=== PATIENT | female | born 1940 | race Caucasian/White ===

== ENCOUNTER 2016-08-20 11:46 | Emergency (ER) | payer MEDICARE, OTHER ==
--- NOTE | 2016-08-20 12:34 | EDM.PDOC ---
ED HPI GENERAL MEDICAL PROBLEM - General Chief Complaint: General Stated Complaint: LEFT ARM AND LEG EDEMA/NAUSEA Time Seen by Provider: 08/20/16 12:21 Source of Information: Reports: Patient, RN Notes Reviewed History Limitations: Reports: No Limitations - History of Present Illness INITIAL COMMENTS - FREE TEXT/NARRATIVE: 76-year-old female presents emergency department day complaint of shortness of breath and weak gain, she is postop day 3 from open reduction internal fixation of the left humerus she states she's really noticed the weight gain over the last 24 hour. Also had some shortness of breath and chest pain earlier today but that now has resolved while she's rested. Denies any fevers does complain of edema in the surgical arm Left Arm Pain Score (Numeric/FACES): 8 - Related Data Allergies Allergy/AdvReac Type Severity Reaction Status Date / Time No Known Allergies Allergy Verified 08/20/16 12:07 Home Meds: Home Meds Aspirin [Adult Low Dose Aspirin EC] 81 mg PO DAILY 08/02/13 [History] Hydrochlorothiazide/Valsartan [Diovan HCTZ 80-12.5 MG] 1 tab PO DAILY 08/02/13 [ History] Insulin Glarg,Human.Rec.Analog [Lantus] 60 unit .XX BEDTIME 08/02/13 [History] Multivitamin [Multi-Vitamin Daily] 1 each PO DAILY 08/02/13 [History] metFORMIN [Glucophage] 1,000 mg PO BIDM 08/02/13 [History] Acetaminophen/HYDROcodone [[place] 325-5 MG] 1 tab PO Q4H PRN 08/20/16 [History] Ascorbic Acid [Isi-C] 2 tab PO DAILY 08/20/16 [History] Insulin Aspart [NovoLOG] 1 unit SUBCUT ASDIRECTED 08/20/16 [History] Isosorbide Mononitrate [Imdur] 1 tab PO DAILY 08/20/16 [History] Magnesium Oxide [Magnesium] 1 tab PO BID 08/20/16 [History] atorvaSTATin Calcium [Atorvastatin Calcium] 10 mg PO DAILY 08/20/16 [History] Past Medical History Cardiovascular History: Reports: Cardiomyopathy, High Cholesterol, Hypertension Endocrine/Metabolic History: Reports: Diabetes, Type II Social & Family History - Tobacco Use Smoking Status *Q: Never Smoker Second Hand Smoke Exposure: No - Alcohol Use Days Per Week of Alcohol Use: 0 - Recreational Drug Use Recreational Drug Use: No ED ROS GENERAL - Review of Systems Review Of Systems: See Below Constitutional: Denies: Fever, Chills HEENT: Reports: No Symptoms, Vision Change Cardiovascular: Reports: Chest Pain, Dyspnea on Exertion, Edema GI/Abdominal: Reports: No Symptoms : Reports: No Symptoms Musculoskeletal: Reports: Shoulder Pain Skin: Reports: No Symptoms Neurological: Reports: No Symptoms ED EXAM, GENERAL - Physical Exam Exam: See Below Free Text/Narrative:: General: Female, not in any distress, alert and oriented x3 HEENT: head is atraumatic normocephalic, eyes pupils equal round reactive to light, sclera clear no conjunctivitis appreciated. Ears tympanic membranes clear and ruggiero landmarks and light reflex are present bilaterally canals are clear. Nose no septal deviation, nares are clear, no blood present. Mouth mucosa is moist and pink no erythema or exudate noted in soft palate, tongue is midline uvula is midline, dentition is intact. Neck: Supple no thyromegaly no tracheal deviation. Nodes: Cervical nodes subclavicular nodes nontender no palpable lymphadenopathy noted. Lungs: clear to auscultation bilaterally with symmetrical respirations, no adventitious noise appreciated. CV: Regular rate and rhythm S1 and S2 appreciated no murmurs rubs or gallops noted. Abdomen: Soft, nontender, no palpable masses or organomegaly appreciated, no distention no guarding bowel sounds are present, . Neuro: Cranial nerves II through XII grossly intact Skin: Warm and dry, intact Extremities: +1 pitting edema bilaterally she does have marked edema appreciated on the distal aspect of the left upper extremity generalized tenderness to mild manipulation of the left shoulder not unexpected postoperatively Course - Vital Signs Last Recorded V/S: Last Vital Signs Temp 98.4 F 08/20/16 12:06 Pulse 84 08/20/16 12:06 Resp 16 08/20/16 12:06 BP 144/73 H 08/20/16 12:06 Pulse Ox 94 L 08/20/16 12:06 - Orders/Labs/Meds Orders: Active Orders 24 hr Category Date Time Status Cardiac Monitoring [RC] .As Directed Care 08/20/16 12:29 Active EKG Documentation Completion [RC] ASDIRECTED Care 08/20/16 12:30 Active EKG 12 Lead [EK] Stat Ther 08/20/16 12:30 Ordered Labs: Laboratory Tests 08/20/16 08/20/16 Range/Units 12:40 12:40 WBC 8.3 (4.5-11.0) K/uL RBC 3.36 (3.30-5.50) M/uL Hgb 9.1 L (12.0-15.0) g/dL Hct 29.3 L (36.0-48.0) % MCV 87 (80-98) fL MCH 27 (27-31) pg MCHC 31 L (32-36) % Plt Count 232 (150-400) K/uL Neut % (Auto) 61 (36-66) % Lymph % (Auto) 27 (24-44) % [place] % (Auto) 8 H (2-6) % Eos % (Auto) 3 (2-4) % Baso % (Auto) 0 (0-1) % Sodium 136 L (140-148) mmol/L Potassium 4.1 (3.6-5.2) mmol/L Chloride 99 L (100-108) mmol/L Carbon Dioxide 33 H (21-32) mmol/L Anion Gap 8.1 (5.0-14.0) mmol/L BUN 17 (7-18) mg/dL Creatinine 1.0 (0.6-1.0) mg/dL Est Cr Clr Drug Dosing 48.00 mL/min Estimated GFR (MDRD) 54 L (>60) Glucose 108 H (74-106) mg/dL Calcium 8.8 (8.5-10.1) mg/dL Total Bilirubin 0.6 (0.2-1.0) mg/dL AST 47 H (15-37) U/L ALT 31 (12-78) U/L Alkaline Phosphatase 60 (46-116) U/L CK-MB (CK-2) 2.3 (0-3.6) mg/mL Troponin I < 0.017 (0.000-0.056) ng/mL [id number]-[id number] Pept 415 H (5-125) pg/mL Total Protein 6.4 (6.4-8.2) g/dL Albumin 2.9 L (3.4-5.0) g/dL Globulin 3.5 (2.3-3.5) g/dL Albumin/Globulin Ratio 0.8 L (1.2-2.2) Departure - Departure Time of Disposition: 14:05 Disposition: Home, Self-Care 01 Condition: Good Clinical Impression: Dyspnea Qualifiers: Dyspnea type: dyspnea on exertion Qualified Code(s): R06.09 - Other forms of dyspnea - Discharge Information Forms: ED Department Discharge Additional Instructions: Please take the Bumex 1 mg once a day and tell your weight returns to your baseline, keep your follow-up appointment with surgery - My Orders Last 24 Hours: My Active Orders 08/20/16 12:29 Cardiac Monitoring [RC] .As Directed 08/20/16 12:30 EKG Documentation Completion [RC] ASDIRECTED EKG 12 Lead [EK] Stat - Assessment/Plan Last 24 Hours: My Active Orders 08/20/16 12:29 Cardiac Monitoring [RC] .As Directed 08/20/16 12:30 EKG Documentation Completion [RC] ASDIRECTED EKG 12 Lead [EK] Stat Plan: Assessment Acuity = acute Site and laterality = fluid overload complicated in the patient with recent post operative surgery 3 days prior known history of cardiomyopathy Etiology = probable secondary to fluid overload during surgical intervention Manifestations = [dyspnea on exertion Location of injury = Home Lab values = hemoglobin low 9.1 consistent normochromic anemia sodium low at 136 consistent hyponatremia BNP mildly elevated at 415 consistent with fluid overload type pattern albumin low at 2.9 consistent hypoalbuminemia EKG demonstrates a left bundle branch block similar to prior EKGs and chest x-ray shows no acute process official read radiology pending Plan I did review lab work EKG and chest x-ray results with her she has been asymptomatic in the ED plan is to try Bumex 1 mg once a day she is going to do daily weights she gets back to her baseline of 193 keep postsurgical follow-up appointment Patient was in agreement with the plan all questions were answered, they were instructed to return to the emergency department or call for worsening symptoms. This note was dictated using [employer] voice recognition software please call with any questions.
--- NOTE | 2016-08-20 13:57 | CR ---
Chest 1V Frontal HISTORY: Shortness of breath. FINDINGS: Cardiac size and pulmonary vessels are normal. The lungs are clear. IMPRESSION: Negative AP chest.
[2016-08-20] MEDS ORDERED: Acetaminophen/HYDROcodone 325-5 MG Tab PO ONE (14:03)
[2016-08-20 14:19] VITALS: BP 150/66
== END 2016-08-20 14:29 | disposition home or self-care (01) ==
LOC: JP.ED 11:46
DX: R06.09 Other forms of dyspnea (principal); E78.00 Pure hypercholesterolemia, unspecified; I10 Essential (primary) hypertension; E11.9 Type 2 diabetes mellitus without complications; Z79.4 Long term (current) use of insulin; Z79.899 Other long term (current) drug therapy; Z79.82 Long term (current) use of aspirin
CPT/HCPCS: 36415; 71010; 71010-26; 80053; 82553; 83880; 84484; 85025; 93005; 93010; 99283; 99284-25

== ENCOUNTER 2016-11-07 01:14 | Emergency (ER) | payer MEDICARE, OTHER ==
[2016-11-07] MEDS ORDERED: Ondansetron 4 MG/2 ML SDV IVPUSH ONE (01:38)
[2016-11-07] MEDS: Nitroglycerin 0.4 MG Tab.SL SL PRN ×2 (01:44→02:01)
[2016-11-07] MEDS ORDERED: Furosemide 40 MG/4 ML VIAL IVPUSH ONE (01:50)
--- NOTE | 2016-11-07 02:04 | EDM.PDOC ---
ED HPI GENERAL MEDICAL PROBLEM - General Chief Complaint: Chest Pain Stated Complaint: MEDICAL VIA TRI Time Seen by Provider: 11/07/16 02:00 Source of Information: Reports: Patient, Family History Limitations: Reports: No Limitations - History of Present Illness INITIAL COMMENTS - FREE TEXT/NARRATIVE: pt arrived with tightness in her chest. She feels like someone is sitting on the chest. Onset: Today Duration: Hour(s):, Getting Worse Location: Reports: Chest Associated Symptoms: Reports: Chest Pain, Shortness of Breath, Other (pressure in the chest. ) Treatments PATTERN MARKER: Reports: Aspirin, Other Medication(s) Other Treatments PATTERN MARKER: ZOFRAN WITH RELIEF PER EMS Middle Chest Pain Score (Numeric/FACES): 4 - Related Data Allergies Allergy/AdvReac Type Severity Reaction Status Date / Time No Known Allergies Allergy Verified 08/20/16 12:07 Home Meds: Home Meds Aspirin [Adult Low Dose Aspirin EC] 81 mg PO DAILY 08/02/13 [History] Hydrochlorothiazide/Valsartan [Diovan HCTZ 80-12.5 MG] 1 tab PO DAILY 08/02/13 [ History] Insulin Glarg,Human.Rec.Analog [Lantus] 60 unit .XX BEDTIME 08/02/13 [History] Multivitamin [Multi-Vitamin Daily] 1 each PO DAILY 08/02/13 [History] metFORMIN [Glucophage] 1,000 mg PO BIDM 08/02/13 [History] Acetaminophen/HYDROcodone [[place] 325-5 MG] 1 tab PO Q4H PRN 08/20/16 [History] Ascorbic Acid [Isi-C] 2 tab PO DAILY 08/20/16 [History] Insulin Aspart [NovoLOG] 1 unit SUBCUT ASDIRECTED 08/20/16 [History] Isosorbide Mononitrate [Imdur] 1 tab PO DAILY 08/20/16 [History] Magnesium Oxide [Magnesium] 1 tab PO BID 08/20/16 [History] atorvaSTATin Calcium [Atorvastatin Calcium] 10 mg PO DAILY 08/20/16 [History] Past Medical History HEENT History: Reports: Impaired Vision Cardiovascular History: Reports: Cardiomyopathy, High Cholesterol, Hypertension Other Cardiovascular History: CHF Gastrointestinal History: Reports: Cholelithiasis, Hemorrhoids, Other (See Below ) Other Gastrointestinal History: inflammatory colon polyps REVERSE ENGINEER History: Reports: Polycystic Ovaries, , Spontaneous Musculoskeletal History: Reports: Fracture Endocrine/Metabolic History: Reports: Diabetes, Type II Hematologic History: Reports: Blood Transfusion(s), Iron Deficiency, Transfusion Reaction Oncologic (Cancer) History: Reports: Breast - Past Surgical History HEENT Surgical History: Reports: Oral Surgery GI Surgical History: Reports: Cholecystectomy, Colonoscopy, Other (See Below) Other GI Surgeries/Procedures: hemorrhoidectomy Female Surgical History: Reports: Section, Tubal Ligation Musculoskeletal Surgical History: Reports: Other (See Below) Other Musculoskeletal Surgeries/Procedures:: surgical repair of humerous Oncologic Surgical History: Reports: Biopsy of Breast, Mastectomy Social & Family History - Tobacco Use Smoking Status *Q: Unknown Ever Smoked Second Hand Smoke Exposure: No - Alcohol Use Days Per Week of Alcohol Use: 0 - Recreational Drug Use Recreational Drug Use: No ED ROS GENERAL - Review of Systems Review Of Systems: See Below Constitutional: Reports: No Symptoms HEENT: Reports: No Symptoms Respiratory: Reports: Shortness of Breath Cardiovascular: Reports: Chest Pain, Dyspnea on Exertion, Other (pressure in the chest) Endocrine: Reports: No Symptoms GI/Abdominal: Reports: Nausea, Vomiting : Reports: No Symptoms Musculoskeletal: Reports: No Symptoms Skin: Reports: No Symptoms ED EXAM, GENERAL - Physical Exam Exam: See Below Free Text/Narrative:: pt arrived with acute pressure in the chest. She has felt sob and she has low o2 sats. She has diabetes and is on Insulin therapy. Exam Limited By: No Limitations General Appearance: Alert, Anxious, Moderate Distress Ears: Normal TMs Throat/Mouth: Normal Inspection Head: Atraumatic Neck: Normal Inspection Respiratory/Chest: Decreased Breath Sounds, Other (o2 sats in the 90s. ) Cardiovascular: Regular Rate, Rhythm GI/Abdominal: Soft, Non-Tender, Other (pt is vomiting bile like material. ) (Female) Exam: Deferred Rectal (Female) Exam: Deferred Back Exam: Normal Inspection Extremities: Leg Pain, Other (pt has plus 2 edema. ) Neurological: Alert, Oriented, Normal Cognition Course - Vital Signs Last Recorded V/S: Last Vital Signs Temp 35.7 C 11/07/16 01:31 Pulse 93 11/07/16 02:30 Resp 14 11/07/16 02:30 BP 156/89 H 11/07/16 02:30 Pulse Ox 93 L 11/07/16 02:30 - Orders/Labs/Meds Orders: Active Orders 24 hr Category Date Time Status EKG Documentation Completion [RC] ASDIRECTED Care 11/07/16 01:22 Active Urinary Catheter Assessment [RC] ASDIRECTED Care 11/07/16 03:03 Active Chest 1V Frontal [CR] Stat Exams 11/07/16 01:22 Taken EKG 12 Lead [EK] Routine Ther 11/07/16 01:22 Ordered Labs: Laboratory Tests 11/07/16 11/07/16 11/07/16 Range/Units 01:34 01:34 01:34 WBC 8.8 (4.5-11.0) K/uL RBC 4.65 (3.30-5.50) M/uL Hgb 11.7 L D (12.0-15.0) g/dL Hct 37.5 (36.0-48.0) % MCV 81 (80-98) fL MCH 25 L (27-31) pg MCHC 31 L (32-36) % Plt Count 274 (150-400) K/uL Neut % (Auto) 74 H (36-66) % Lymph % (Auto) 18 L (24-44) % [place] % (Auto) 5 (2-6) % Eos % (Auto) 2 (2-4) % Baso % (Auto) 1 (0-1) % APTT (27.0-36.0) sec Sodium 136 L (140-148) mmol/L Potassium 3.9 (3.6-5.2) mmol/L Chloride 101 (100-108) mmol/L Carbon Dioxide 27 (21-32) mmol/L Anion Gap 11.9 (5.0-14.0) mmol/L BUN 16 (7-18) mg/dL Creatinine 1.0 (0.6-1.0) mg/dL Est Cr Clr Drug Dosing 48.00 mL/min Estimated GFR (MDRD) 54 L (>60) Glucose 257 H (74-106) mg/dL Calcium 8.6 (8.5-10.1) mg/dL Magnesium (1.8-2.4) mg/dL Total Bilirubin 0.3 (0.2-1.0) mg/dL AST 20 (15-37) U/L ALT 23 (12-78) U/L Alkaline Phosphatase 76 (46-116) U/L Creatine Kinase 128 (26-192) U/L Troponin I 0.192 H* (0.000-0.056) ng/mL NT-Pro-B Natriuret Pep (5-125) pg/mL Total Protein 7.6 (6.4-8.2) g/dL Albumin 3.4 (3.4-5.0) g/dL Globulin 4.2 H (2.3-3.5) g/dL Albumin/Globulin Ratio 0.8 L (1.2-2.2) 11/07/16 11/07/16 11/07/16 Range/Units 01:38 02:08 02:38 WBC (4.5-11.0) K/uL RBC (3.30-5.50) M/uL Hgb (12.0-15.0) g/dL Hct (36.0-48.0) % MCV (80-98) fL MCH (27-31) pg MCHC (32-36) % Plt Count (150-400) K/uL Neut % (Auto) (36-66) % Lymph % (Auto) (24-44) % [place] % (Auto) (2-6) % Eos % (Auto) (2-4) % Baso % (Auto) (0-1) % APTT 24.3 L (27.0-36.0) sec Sodium (140-148) mmol/L Potassium (3.6-5.2) mmol/L Chloride (100-108) mmol/L Carbon Dioxide (21-32) mmol/L Anion Gap (5.0-14.0) mmol/L BUN (7-18) mg/dL Creatinine (0.6-1.0) mg/dL Est Cr Clr Drug Dosing mL/min Estimated GFR (MDRD) (>60) Glucose (74-106) mg/dL Calcium (8.5-10.1) mg/dL Magnesium 1.6 L (1.8-2.4) mg/dL Total Bilirubin (0.2-1.0) mg/dL AST (15-37) U/L ALT (12-78) U/L Alkaline Phosphatase (46-116) U/L Creatine Kinase (26-192) U/L Troponin I (0.000-0.056) ng/mL NT-Pro-B Natriuret Pep 571 H (5-125) pg/mL Total Protein (6.4-8.2) g/dL Albumin (3.4-5.0) g/dL Globulin (2.3-3.5) g/dL Albumin/Globulin Ratio (1.2-2.2) Meds: Medications Discontinued Medications Generic Name Dose Route Start Last Admin Trade Name Freq PRN Reason Stop Dose Admin Furosemide 60 mg 11/07/16 01:50 11/07/16 02:03 Lasix IVPUSH 11/07/16 01:51 60 mg ONETIME ONE Administration Heparin Sodium (Porcine) 4,000 units 11/07/16 02:14 11/07/16 02:20 Heparin Sodium IVPUSH 11/07/16 02:15 4,000 units ONETIME ONE Administration Nitroglycerin/Dextrose 25 mg in 250 mls @ 6 mls/hr 11/07/16 02:15 11/07/16 02 :20 Nitroglycerin 25 Mg/D5w 250 Ml IV 10 mcg/min TITRATE MUMTAZ 6 mls/hr Protocol Administration 10 MCG/MIN Magnesium Sulfate 2 gm/ Premix 50 mls @ 12.5 mls/hr 11/07/16 02:38 11/07/16 02:51 IV 11/07/16 06:37 12.5 mls/hr ONETIME ONE Administration Meclizine HCl 25 mg 11/07/16 02:32 11/07/16 02:51 Antivert PO 11/07/16 02:33 25 mg ONETIME ONE Administration Nitroglycerin 0.4 mg 11/07/16 01:30 11/07/16 02:01 Nitrostat SL 0.4 mg Q5M PRN Administration Chest Pain Ondansetron HCl 4 mg 11/07/16 01:38 11/07/16 01:45 Zofran IVPUSH 11/07/16 01:39 4 mg ONETIME ONE Administration - Re-Assessments/Exams Free Text/Narrative Re-Assessment/Exam: 11/07/16 02:21 pt has a elevated trop at .0192. Her ekg shows a left bundle branch block which is old. She has a history of a cardiomyopathy. Her chest xray show some engorged vasculature. Departure - Departure Time of Disposition: 02:26 Disposition: DC/Tfer to Acute Hospital 02 Reason for Transfer *Q: Primary PCI Indicated Condition: Fair Clinical Impression: Elevated troponin, Acute [place], CHF (congestive heart failure), Diabetes mellitus Referrals: Lance Duron MD [Primary Care Provider] - Forms: ED Department Discharge Care Plan Goals: Transfer to [facility] - My Orders Last 24 Hours: My Active Orders 11/07/16 01:22 EKG Documentation Completion [RC] ASDIRECTED Chest 1V Frontal [CR] Stat EKG 12 Lead [EK] Routine 11/07/16 03:03 Urinary Catheter Assessment [RC] ASDIRECTED - Assessment/Plan Last 24 Hours: My Active Orders 11/07/16 01:22 EKG Documentation Completion [RC] ASDIRECTED Chest 1V Frontal [CR] Stat EKG 12 Lead [EK] Routine 11/07/16 03:03 Urinary Catheter Assessment [RC] ASDIRECTED
[2016-11-07] MEDS ORDERED: Heparin Sodium 5,000 Units/ML Vial IVPUSH ONE (02:14)
[2016-11-07] MEDS ORDERED: Nitroglycerin/D5W 25 MG/250 ML BOTTLE IV SCH (02:15)
[2016-11-07] MEDS ORDERED: Meclizine 25 MG Tab PO ONE (02:32)
[2016-11-07] MEDS ORDERED: Magnesium Sulfate/Water 2 GM in Premix Bag 1 BAG IV ONE (02:38)
[2016-11-07 03:16] VITALS: BP 156/89
--- NOTE | 2016-11-09 08:57 | CR ---
Chest 1V Frontal INDICATION: sob FINDINGS: Comparison 08/20/2016. Cardiac enlargement with pulmonary venous hypertension and new inters titial edema. Findings suggest CHF. Right mastectomy with surgical clips right axilla. Plate-screw fi xation across a left humeral fracture.
== END 2016-11-07 03:05 ==
LOC: JP.ED 01:14
DX: I21.3 ST elevation (STEMI) myocardial infarction of unspecified site (principal); I11.0 Hypertensive heart disease with heart failure; I50.9 Heart failure, unspecified; R79.89 Other specified abnormal findings of blood chemistry; E11.9 Type 2 diabetes mellitus without complications; E78.00 Pure hypercholesterolemia, unspecified; Z79.82 Long term (current) use of aspirin; Z79.4 Long term (current) use of insulin; Z79.84 Long term (current) use of oral hypoglycemic drugs; Z79.899 Other long term (current) drug therapy; Z90.49 Acquired absence of other specified parts of digestive tract; Z98.890 Other specified postprocedural states
CPT/HCPCS: 36415; 51702; 71010; 80053; 82550; 83735; 83880; 84484; 85025; 85730; 93005; 93010; 96374; 96375; 99285; A9270; J1644; J1940; J2405; J3475

== ENCOUNTER 2016-12-09 09:41 | Emergency (ER) | payer MEDICARE, OTHER | END 2016-12-09 10:10 | disposition left against medical advice (07) | LOC: JP.ED 09:41 | DX: Z53.21 Procedure and treatment not carried out due to patient leaving prior to being seen by health care provider (principal) | CPT/HCPCS: 99281 ==

== ENCOUNTER 2019-04-01 11:41 | Emergency (ER) | payer MEDICARE, BC ==
[2019-04-01 11:55] VITALS: BP 158/53; PULSE 65
--- NOTE | 2019-04-01 12:15 | EDM.PDOC ---
ED HPI GENERAL MEDICAL PROBLEM - General Chief Complaint: General Stated Complaint: L LEG PAIN Time Seen by Provider: 04/01/19 12:03 Source of Information: Reports: Patient History Limitations: Reports: No Limitations - History of Present Illness INITIAL COMMENTS - FREE TEXT/NARRATIVE: Patient presents because of increasing left leg pain and swelling and recently found abnormal lab tests possibly indicating DVT and/or other thrombotic conditions. She was seen in a follow-up visit in her cardiology clinic yesterday. A number of labs were obtained and this morning her provider called her and said that based on the lab results, she should come in here for further evaluation with concern for possible clotting. The patient's left leg has been bigger and mildly painful for a while but more so recently. The right leg does not bother her area one week ago. She had a fairly intense episode of crushing but also sharp chest pain which was relieved with nitroglycerin. She was not seen following that episode. She is not physically as active but isn't sure that her breathing has been any different in the last week or so. She does not awaken at night short of breath. 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 - Related Data Allergies Allergy/AdvReac Type Severity Reaction Status Date / Time adhesive tape AdvReac Other Verified 04/01/19 11:48 nickel AdvReac Other Verified 04/01/19 11:48 Home Meds: Home Meds Aspirin [Adult Low Dose Aspirin EC] 81 mg PO DAILY 08/02/13 [History] Multivitamin [Multi-Vitamin Daily] 1 each PO DAILY 08/02/13 [History] metFORMIN [Glucophage] 1,000 mg PO BIDM 08/02/13 [History] Insulin Aspart [NovoLOG] 1 unit SUBCUT ASDIRECTED 08/20/16 [History] Isosorbide Mononitrate [Imdur] 60 tab PO DAILY 08/20/16 [History] Magnesium Oxide [Magnesium] 1 tab PO BID 08/20/16 [History] atorvaSTATin Calcium [Atorvastatin Calcium] 10 mg PO DAILY 08/20/16 [History] Furosemide [Lasix] 20 mg PO DAILY 04/01/19 [History] Insulin Glargine,Hum.Rec.Anlog [Basaglar Kwikpen U-100] 100 unit SQ ASDIRECTED 04/01/19 [History] Losartan [Cozaar] 50 mg PO DAILY 04/01/19 [History] Meclizine [Antivert] 25 mg PO Q6H PRN 04/01/19 [History] Metoprolol Succinate [Toprol XL] 25 mg PO DAILY 04/01/19 [History] Nitroglycerin 0.4 mg SL ASDIRECTED 04/01/19 [History] Terbinafine [LamISIL] 250 mg PO DAILY 04/01/19 [History] amLODIPine Besylate [Norvasc] 2.5 mg PO DAILY 04/01/19 [History] Past Medical History HEENT History: Reports: Impaired Vision Cardiovascular History: Reports: Cardiomyopathy, High Cholesterol, Hypertension Other Cardiovascular History: CHF Gastrointestinal History: Reports: Cholelithiasis, Hemorrhoids, Other (See Below ) Other Gastrointestinal History: inflammatory colon polyps [employer] History: Reports: Polycystic Ovaries, , Spontaneous Musculoskeletal History: Reports: Fracture Endocrine/Metabolic History: Reports: Diabetes, Type II Hematologic History: Reports: Blood Transfusion(s), Iron Deficiency, Transfusion Reaction Oncologic (Cancer) History: Reports: Breast - Past Surgical History HEENT Surgical History: Reports: Oral Surgery GI Surgical History: Reports: Cholecystectomy, Colonoscopy, Other (See Below) Other GI Surgeries/Procedures: hemorrhoidectomy Female Surgical History: Reports: Section, Tubal Ligation Musculoskeletal Surgical History: Reports: Other (See Below) Other Musculoskeletal Surgeries/Procedures:: surgical repair of humerous Oncologic Surgical History: Reports: Biopsy of Breast, Mastectomy ED ROS GENERAL - Review of Systems Review Of Systems: See Below Constitutional: Denies: Fever, Chills Respiratory: Reports: Cough Cardiovascular: Reports: Chest Pain (1 week ago with no recurrence.). Denies: Lightheadedness GI/Abdominal: Reports: No Symptoms Musculoskeletal: Reports: Other (Left leg varicose veins and proximal leg soreness.) Neurological: Denies: Numbness, Weakness ED EXAM, GENERAL - Physical Exam Exam: See Below Exam Limited By: No Limitations General Appearance: Alert, No Apparent Distress Respiratory/Chest: No Respiratory Distress Cardiovascular: Regular Rate, Rhythm Extremities: Other (Multiple left leg varicosities. There is pain on palpation along the proximal lateral portion of the left leg extending into the popliteal region. The left leg is larger than the right leg.) Neurological: Alert Skin Exam: No: Mottled Lymphatic: No Adenopathy Course - Vital Signs Last Recorded V/S: Last Vital Signs Temp 35.4 C 04/01/19 12:02 Pulse 65 04/01/19 12:02 Resp 14 04/01/19 12:02 BP 158/53 H 04/01/19 12:02 Pulse Ox 100 04/01/19 12:02 - Orders/Labs/Meds Labs: Laboratory Tests 04/01/19 04/01/19 04/01/19 Range/Units 16:05 16:05 16:05 WBC 10.2 (4.5-11.0) K/uL RBC 4.25 (3.30-5.50) M/uL Hgb 11.3 L (12.0-15.0) g/dL Hct 37.5 (36.0-48.0) % MCV 88 (80-98) fL MCH 27 (27-31) pg MCHC 30 L (32-36) % Plt Count 296 (150-400) K/uL Neut % (Auto) 53 (36-66) % Lymph % (Auto) 38 (24-44) % [place] % (Auto) 7 H (2-6) % Eos % (Auto) 3 (2-4) % Baso % (Auto) 0 (0-1) % PT 10.3 (9.5-12.0) sec INR 0.95 (0.80-1.20) Sodium 143 (140-148) mmol/L Potassium 4.5 (3.6-5.2) mmol/L Chloride 104 (100-108) mmol/L Carbon Dioxide 27 (21-32) mmol/L Anion Gap 11.6 (5.0-14.0) mmol/L BUN 15 (7-18) mg/dL Creatinine 1.1 H (0.6-1.0) mg/dL Est Cr Clr Drug Dosing 40.87 mL/min Estimated GFR (MDRD) 48 L (>60) Glucose 136 H (74-106) mg/dL Calcium 8.9 (8.5-10.1) mg/dL Meds: Medications Discontinued Medications Generic Name Dose Route Start Last Admin Trade Name Freq PRN Reason Stop Dose Admin Enoxaparin Sodium 80 mg 04/01/19 15:53 04/01/19 16:00 Lovenox SUBCUT 04/01/19 15:54 80 mg ONETIME ONE Administration - Re-Assessments/Exams Free Text/Narrative Re-Assessment/Exam: 04/01/19 19:52 Outside records from [place] were reviewed which show elevation of the d-dimer but it is difficult to quantitate with their reference system. Given the concern that her provider head with possible clot, we will obtain a Doppler study of the left leg for possible DVT. Review of her chest pain episode one week ago, by her description and and notes from her cardiology provider yesterday, indicate a possibility of pulmonary embolus. 04/01/19 19:54 Left leg venous ultrasound shows lesser saphenous vein thrombosis but no evidence of DVT. I reviewed findings today and her other recent history. I recommend that she have a CT angiogram to rule out possible pulmonary embolus. At this time, with sunlight fading away, the patient is concerned about getting home before it is dark because of her vision. She is willing to return for studies at a later time. She asked when she should return for a scan and I recommended tomorrow. She thinks she can do so following [facility]. She was given an 80 mg dose of Lovenox prior to discharge. She was instructed to return here as soon as possible tomorrow and registered to be seen for scanning to look for possible PE. She was discharged in stable condition. Reasons to return to emergency department before then were reviewed. Departure - Departure Time of Disposition: 15:53 Disposition: Home, Self-Care 01 Condition: Good Clinical Impression: Superficial thrombophlebitis of left leg, Chest pain made worse by breathing - Discharge Information *PRESCRIPTION DRUG MONITORING PROGRAM REVIEWED*: Not Applicable *COPY OF PRESCRIPTION DRUG MONITORING REPORT IN PATIENT FARHAD: Not Applicable Instructions: Thrombophlebitis, Nonspecific Chest Pain, [id number]-[id number]-Almc Referrals: Lance Duron MD [Primary Care Provider] - Forms: ED Department Discharge Additional Instructions: Return tomorrow as discussed for a CT angiogram of the chest to look for blood clot in the lungs. If you feel worse before tomorrow, return as soon as possible. You were given an injection of a blood thinning medication that will cover you until return tomorrow. Sepsis Event Note - Evaluation Sepsis Screening Result: No Definite Risk - Focused Exam Vital Signs: Vital Signs Temp Pulse Resp BP Pulse Ox 04/01/19 12:02 35.4 C 65 14 158/53 H 100 04/01/19 11:53 35.4 C 65 14 158/53 H 100 Date Exam was Performed: 04/01/19 Time Exam was Performed: 19:48
--- NOTE | 2019-04-01 14:17 | CRLUS ---
INDICATION: Left leg pain and swelling. TECHNIQUE: Ultrasound venous duplex lower left extremity. Compression venous exam was performed using ruggiero-scale, color Doppler, and spectral waveform analysis. COMPARISON: None FINDINGS: Left common femoral, greater saphenous, femoral and popliteal veins are patent and compressible, without evidence of venous thrombosis. Venous thrombosis is present in the lesser saphenous vein extending to within 5 mm of the popliteal junction. Contralateral right common femoral vein is patent. Soft tissues elsewhere as imaged are unremarkable. IMPRESSION: Lesser saphenous vein thrombosis is approximately 5 mm from the popliteal vein junction. Treatment and/or ultrasound follow-up recommended as indicated. Otherwise, no evidence of left lower extremity deep venous thrombosis. Dictated by Aditya Damico MD @ 04/01/2019 2:14:26 PM Dictated by: Aditya Damico MD @ 04/01/2019 14:14:56 (Electronically Signed)
[2019-04-01] MEDS ORDERED: Enoxaparin 80 MG/0.8 ML Syringe SUBCUT ONE (15:53)
== END 2019-04-01 16:07 | disposition home or self-care (01) ==
LOC: JP.ED 11:41
DX: I80.02 Phlebitis and thrombophlebitis of superficial vessels of left lower extremity (principal); R07.1 Chest pain on breathing; I11.0 Hypertensive heart disease with heart failure; I50.9 Heart failure, unspecified; E11.9 Type 2 diabetes mellitus without complications; E78.00 Pure hypercholesterolemia, unspecified; Z91.048 Other nonmedicinal substance allergy status; Z79.82 Long term (current) use of aspirin; Z79.4 Long term (current) use of insulin; Z79.899 Other long term (current) drug therapy
CPT/HCPCS: 36415; 80048; 85025; 85610; 93971; 96372; 99284; J1650